=== PATIENT | male | born 1955 | race Caucasian/White ===

== ENCOUNTER → 2017-12-10 | Outpatient (REF) | payer BC ==
[2017-12-10 13:46] LABS: APPEARANCE, URINE CLEAR (CLEAR); BACTERIA, URINE AUTO NEGATIVE (NEGATIVE); BILIRUBIN, URINE AUTO NEGATIVE (NEGATIVE); BLOOD, URINE BLOOD NEGATIVE (NEGATIVE); COLOR, URINE YELLOW (YELLOW); GLUCOSE, URINE (UA) AUTO NEGATIVE (NEGATIVE); KETONE, URINE AUTO NEGATIVE (NEGATIVE); LEUKOCYTE ESTERASE, URINE AUTO NEGATIVE (NEGATIVE); MUCUS, URINE SMALL (NEGATIVE); NITRITE, URINE AUTO NEGATIVE (NEGATIVE); PROTEIN, URINE AUTO NEGATIVE (NEGATIVE); RBC, URINE AUTO 0 /HPF (0-3); SPECIFIC GRAVITY URINE AUTO 1.017 (1.002-1.035); SQUAMOUS EPITHELIAL CELL UR AU 0 /HPF (0-6); UROBILINOGEN, URINE AUTO 0.2 mg/dL (0.0-2.0); WBC, URINE AUTO 0 /HPF (0-3)
== END ==
LOC: M SMT 12:58
DX: N40.1 Benign prostatic hyperplasia with lower urinary tract symptoms (principal)

== ENCOUNTER 2023-06-23 06:06 | Day surgery (SDC) | payer MEDICARE, MEDICAID ==
[~2023-06-23] VITALS: Ht 167.6 cm; Wt 83.4 kg
[~2023-06-23 06:06] MED LIST: AVOD0.5C PO; BAYE81TA10 PO; EZET10TA21 PO; ICOS1CAP PO; LOSA50TA28 PO; PANT40TA29 PO; TAMS1CAP17 PO; ceFAZolin SOD 2 GM in IV 1 EA IV ONE
[2023-06-23] MEDS ORDERED: LR 1,000 ML IV SCH ×2 (06:30→09:05)
[2023-06-23] MEDS ORDERED: fentaNYL 100 MCG/2 ML INJECTION As Ordered ONE (07:10)
[2023-06-23] MEDS ORDERED: MIDAZOLAM INJ 2MG/2ML VIAL As Ordered ONE (07:10)
[2023-06-23] MEDS ORDERED: propofoL 200 MG/20 ML VIAL As Ordered ONE (07:11)
[2023-06-23] MEDS ORDERED: LIDOCAINE 2% 100MG/5ML SDV (FOR ANES.) As Ordered ONE ×2 (07:11→07:12)
[2023-06-23] MEDS ORDERED: ONDANSETRON 4MG 2ML VIAL As Ordered ONE (07:12)
[2023-06-23] MEDS ORDERED: BACITRACIN OINTMENT 30GM TUBE As Ordered ONE (07:17)
[2023-06-23] MEDS ORDERED: LIDOCAINE 1% SDV 30ML VIAL As Ordered ONE (07:17)
[2023-06-23] MEDS ORDERED: ACETAMINOPHEN 1000MG 100ML IV BAG As Ordered ONE (07:47)
[2023-06-23] MEDS ORDERED: fentaNYL 100 MCG/2 ML INJECTION IV PRN (09:05)
[2023-06-23] MEDS ORDERED: ONDANSETRON 4MG 2ML VIAL IV PRN (09:05)
[2023-06-23] MEDS ORDERED: OXYC1TAB23 PO (09:30)
[2023-06-23 11:20] VITALS: BP 119/78; TEMP 97.5; O2SAT 95
== END 2023-06-23 11:25 | disposition home or self-care (01) ==
LOC: M SDC 06:06
PROVIDERS: ATTEND Urology
DX: N50.3 Cyst of epididymis (principal); I10 Essential (primary) hypertension; E78.5 Hyperlipidemia, unspecified; I25.2 Old myocardial infarction; Z98.61 Coronary angioplasty status; N40.0 Benign prostatic hyperplasia without lower urinary tract symptoms; K21.9 Gastro-esophageal reflux disease without esophagitis; Z79.82 Long term (current) use of aspirin; Z79.899 Other long term (current) drug therapy
CPT/HCPCS: 54840; 88305; J0131; J0665; J0690; J1100; J2250; J2405; J3010